=== PATIENT | male | born 1950 ===

== ENCOUNTER 2018-03-12 14:37 | Emergency (ER) | payer SELFPAY ==
[2018-03-12 14:41] VITALS: BP 117/73; TEMP 97
[2018-03-12 15:43] VITALS: PULSE 91; RESP 18; O2SAT 100
--- NOTE | 2018-03-12 15:44 | ED PDOC ---
Arrival/HPI - General Chief Complaint: Weakness/Neurological Deficit Time Seen by Provider: 03/12/18 15:04 Historian: Patient - History of Present Illness Narrative History of Present Illness (Text): 03/12/18 15:44 67-year-old male with past medical history of diabetes, presents under police custody for medical clearance. Patient states that he took all of his daily medications this morning including metformin and aspirin. Patient states that he has no complaints at this time he only is asking for water for his try mouth. States that he did have breakfast this morning. Otherwise he reports no fever, headache, nausea, vomiting, diarrhea, urinary symptoms, doubt pain, chest pain, shortness of breath, history of depression, history of anxiety, SI, HI. Has no other complaints at this time. Past Medical History - Cardiac Hx Hypertension: Yes - Endocrine/Metabolic Hx Diabetes Mellitus Type 2: Yes - Hematological/Oncological Hx Cancer: Yes (skin) - Psychiatric Hx Substance Use: No - Surgical History Other/Comment: Eye surgery - Anesthesia Hx Anesthesia: Yes Hx Anesthesia Reactions: No - Suicidal Assessment Suicidal Thoughts: No Plan: No Suicide Risk Precautions: None Family/Social History Family/Social History: No Known Family HX Smoking Status: Never Smoked Hx Alcohol Use: No Hx Substance Use: No Allergies/Home Meds Allergies/Adverse Reactions: Allergies No Known Allergies Allergy (Verified 03/12/18 14:37) Review of Systems - Review of Systems Constitutional: absent: Fatigue, Fevers Respiratory: absent: SOB, Cough Cardiovascular: absent: Chest Pain, Palpitations Gastrointestinal: absent: Abdominal Pain, Diarrhea, Vomiting Genitourinary Male: absent: Dysuria, Frequency Musculoskeletal: absent: Arthralgias, Back Pain Skin: absent: Rash, Pruritis, Skin Lesions Neurological: absent: Headache, Dizziness Physical Exam Vital Signs Temp Pulse Resp BP Pulse Ox 03/12/18 15:42 91 H 18 100 03/12/18 14:38 97.0 F L 112 H 20 117/73 98 Temperature: Afebrile Blood Pressure: Normal Pulse: Regular Respiratory Rate: Normal Appearance: Positive for: Well-Appearing, Non-Toxic, Comfortable Pain Distress: None Mental Status: Positive for: Alert and Oriented X 3 Finger Stick Blood Glucose: 176 - Systems Exam Head: Present: Atraumatic, Normocephalic Pupils: Present: PERRL Extroacular Muscles: Present: EOMI Conjunctiva: Present: Normal Mouth: Present: Moist Mucous Membranes Neck: Present: Normal Range of Motion. No: MIDLINE TENDERNESS, Lymphadenopathy Respiratory/Chest: Present: Clear to Auscultation, Good Air Exchange. No: Respiratory Distress, Accessory Muscle Use Cardiovascular: Present: Regular Rate and Rhythm, Normal S1, S2. No: Murmurs Abdomen: No: Tenderness, Distention, Peritoneal Signs Back: Present: Normal Inspection. No: CVA Tenderness, Midline Tenderness Upper Extremity: Present: Normal Inspection. No: Cyanosis, Edema Lower Extremity: Present: Normal Inspection. No: Edema Neurological: Present: GCS=15, CN II-XII Intact, Speech Normal, Motor Func Grossly Intact, Normal Sensory Function, Memory Normal Skin: Present: Warm, Dry, Normal Color. No: Rashes Psychiatric: Present: Alert, Oriented x 3, Normal Insight, Normal Concentration Medical Decision Making ED Course and Treatment: 03/12/18 15:47 Fingerstick was 76. Patient is tolerating by mouth fluids in the ER. He still has no medical or psychiatric complaints at this time. Patient is medically cleared and will be discharged under police custody. Patient is medically and psychiatrically cleared. - Lab Interpretations Lab Results: Lab Results 03/12/18 14:52: POC Glucose (mg/dL) 176 H - PA / [employer] / Resident Statement MD/DO has reviewed & agrees with the documentation as recorded. Disposition/Present on Arrival - Present on Arrival Any Indicators Present on Arrival: No History of DVT/PE: No History of Uncontrolled Diabetes: No Urinary Catheter: No History of Decub. Ulcer: No - Disposition Have Diagnosis and Disposition been Completed?: Yes Diagnosis: Medical clearance for incarceration Disposition: RELEASED IN POLICE CUSTODY Disposition Time: 15:30 Patient Plan: Discharge Condition: STABLE Discharge Instructions (ExitCare): Type 2 Diabetes Print Language: YI Additional Instructions: Patient is medically and psychiatrically cleared for incarceration. Forms: [employer] ([place])
== END 2018-03-12 15:50 ==
LOC: H.ER 14:37
DX: E11.9 Type 2 diabetes mellitus without complications (principal); I10 Essential (primary) hypertension; Z85.828 Personal history of other malignant neoplasm of skin